=== PATIENT | male | born 1995 | race Caucasian/White ===

== ENCOUNTER 2024-04-28 22:36 | Inpatient (IN) | payer MEDICAID, OTHER, SELFPAY ==
[2024-04-28 22:48] VITALS: BP 127/87; BP 142/98; PULSE 90; PULSE 95; RESP 18; TEMP 37.3; O2SAT 95; O2SAT 96; BMI 31.6
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
[2024-04-29 00:07] LABS: MANUAL DIFF FLAG NO
[2024-04-29 00:12] LABS: Basophils Absolute Auto 0.1 X10*3/uL (0.0-0.2); Basophils Percent Auto 0.7 % (0-2); Eosinophils Absolute Auto 0.1 X10*3/uL (0.0-0.4); Eosinophils Percent Auto 1.2 % (0-4); Hematocrit 42.4 % (42.0-52.0); Hemoglobin 14.5 g/dl (14.0-18.0); Imm Gran Abs Auto 0.01 X10*3/uL (0.00-0.03); Imm Gran Pct Auto 0.1 % (0.0-0.4); Lymphocytes Absolute Auto 2.2 X10*3/uL (1.2-4.9); Lymphocytes Percent Auto 26.3 % (20-40); Mean Corpuscular HGB Conc 34.2 g/dl (31.0-36.0); Mean Corpuscular Hemoglobin 30.3 pg (27.0-33.0); Mean Corpuscular Volume 88.5 fL (80.0-98.0); Mean Platelet Volume 9.3 fL (9.4-12.4); Monocytes Absolute Auto 0.5 X10*3/uL (0.1-1.2); Monocytes Percent Auto 5.6 % (2-11); Neutrophils Absolute Auto 5.4 x10*3/uL (2.0-8.3); Neutrophils Percent Auto 66.1 % (45-73); Platelet Count 295 X10*3/uL (160-400); Red Blood Count 4.79 X10*6/uL (4.60-5.80); Red Cell Distribution Width 13.3 % (11.0-16.0); White Blood Count 8.2 X10*3/uL (4.8-10.8)
[2024-04-29 00:21] LABS: Amphetamine Screen Urine Not Detected (Not Detect); Barbiturates, Urine Not Detected (Not Detect); Benzodiazepines Screen Urine Not Detected (Not Detect); Buprenorphine Scr Not Detected (Not Detect); Cannabinoid Screen Urine Not Detected (Not Detect); Cocaine Screen Urine Not Detected (Not Detect); Fentanyl, urine Not Detected (Not Detect); Methadone Screen, Urine Not Detected (Not Detect); Opiate Screen Urine Not Detected (Not Detect); Oxycodone Screen Urine Not Detected (Not Detect); Phencyclidine Screen Urine Not Detected (Not Detect)
[2024-04-29 00:27] LABS: Alanine Aminotransferase 57 U/L (0-40); Albumin Level 4.8 g/dL (3.5-5.0); Alkaline Phosphatase 100 U/L (39-117); Anion Gap 16 (12-20); Aspartate Amino Transferase 26 U/L (5-37); Bilirubin Direct 0.1 mg/dL (0.0-0.5); Bilirubin Total 0.3 mg/dL (0.0-1.0); Blood Urea Nitrogen 15 mg/dL (9-16); Calcium 10.3 mg/dL (8.4-10.2); Carbon Dioxide 22 mmol/L (22-29); Chloride 107 mmol/L (96-108); Creatinine Clr Calc Pharmacy 145.3; Estimated Glomerular Filt Rate > 60; Ethanol < 10 mg/dL; Glucose Random 102 mg/dL (60-115); Sodium 141 mmol/L (135-145); Total Protein 7.8 g/dL (6.5-8.0)
[2024-04-29] MEDS: hydrOXYzine HCL 50 MG TABLET PO ×3 (02:13→21:20)
[2024-04-29] MEDS: diphenhydrAMINE HCL 25 MG CAPSULE PO ×2 (02:13→21:20)
[2024-04-29 06:03] VITALS: BP 109/75; PULSE 69; RESP 15; TEMP 36.8; O2SAT 98
--- NOTE | 2024-04-29 07:59 | ECG_ITS ---
Test Reason : CHECK FOR PROLONGED QT Blood Pressure : / mmHG Vent. Rate : 082 BPM Atrial Rate : 082 BPM P-R Int : 164 ms QRS Dur : 100 ms QT Int : 366 ms P-R-T Axes : 054 077 044 degrees QTc Int : 427 ms Normal sinus rhythm Normal ECG No previous ECGs available Referred By: Generic ED Physician Electronically Signed By:LILIAM URBINA
[2024-04-29 08:36] LABS: Appearance Urine Clear; Color Urine Dark Yellow; Glucose Urine UA Negative (Negative); Leukocyte Esterase Urine Negative (Negative); Nitrite Urine Negative (Negative); Specific Gravity - Urine >= 1.030 (1.005-1.025); Urine Blood Negative (Negative); Urine Ketones Negative (Negative); Urine Protein Negative (Neg-Trace)
[2024-04-29] MEDS: Sertraline HCL 100 MG TABLET PO (09:16)
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
--- NOTE | 2024-04-29 11:33 | PC.ADMIT ---
Bladimir is a 28-year-old male admitted from [facility] to [facility] on a CV for treatment of unspecified anxiety disorder. Tox screen negative. Pt denies substance use. Pt reported rarely using alcohol but drank 4-5 shots yesterday due to increased anxiety. Pt presented to the ED via ambulance secondary to feeling overwhelmed by family conflicts at home.Pt reports feeling triggered at home with his mother's and sister's alcohol use. Pt endorsed suicidal ideation and stated I just want it to end, I want to be free from all this stress. Pt did not disclose a plan. Pt currently reports feeling safe on the unit. Upon arrival to [facility] pt was pleasant and cooperative. Mood is depressed, affect is flat. Pt reports difficulty falling and staying asleep. Pt denied medical issues. Pt placed on 15 minute safety checks.
[2024-04-29 16:41] VITALS: BP 121/78; PULSE 82; RESP 16; TEMP 36.4; O2SAT 97
[2024-04-29 16:46] VITALS: BMI 39.9
[2024-04-29 22:06] VITALS: BP 121/77; PULSE 80; RESP 18; TEMP 36.6; O2SAT 96
[2024-04-30 07:00] VITALS: BMI 39.9
[2024-04-30 07:30] VITALS: BP 120/79; PULSE 82; RESP 14; TEMP 36.4; O2SAT 96
[2024-04-30] MEDS: Sertraline HCL 100 MG TABLET PO (08:33)
[2024-04-30] MEDS: hydrOXYzine HCL 50 MG TABLET PO ×2 (08:33→22:05)
[2024-04-30] MEDS: Acetaminophen 325 MG TABLET 650 MG PO (08:36)
--- NOTE | 2024-04-30 09:02 | P.PNPSI_ITS ---
Subjective Subjective Date of Service: 04/30/24 Reason For Visit: Crisis Subjective Notes: Conditional Voluntary Interim History: Reviewed with Dr. Martinez. Active on unit, social with peers. Pt reports feeling better since being on the unit. Discussed possibly attending PHP after discharge. He reports sleeping well. denies SI/HI/VH/AH. Medication Compliance: Yes Side effects from medications: No Attending Groups: Yes Review of Systems Constitutional: Reports as per HPI Eyes: Reports as per HPI Reports as per HPI Cardiovascular: Reports as per HPI Respiratory: Reports as per HPI Gastrointestinal: Reports as per HPI Genitourinary: Reports as per HPI Musculoskeletal: Reports as per HPI Skin/Breast: Reports as per HPI Reports as per HPI Psychiatric: Reports as per HPI Endocrine: Reports as per HPI Hematologic/Lymphatic: Reports as per HPI Allergic/Immunologic: Reports as per HPI Mental Status Exam Mental Status Exam Narrative: Pt is alert and oriented; behavior is cooperative and calm; dressed in casual attire; mood is described as okay ; eye contact appropriate; Speech is normal rate, volume and not pressured; thought process is organized; Thought content is on tx; otherwise pertinent to relevant topics and without any delusional content, paranoid ideations or grandiosity; denies SI/HI/VH/AH. Diagnostics Vital Signs (24Hr): Vital Signs - 24 hr 04/29/24 16:41 04/29/24 22:06 04/30/24 07:30 Temperature 97.5 F 97.8 F 97.5 F Pulse Rate 82 80 82 Respiratory Rate 16 18 14 Blood Pressure 121/78 121/77 120/79 Pulse Oximetry 97 96 96 Oxygen Delivery Method Room Air Room Air Room Air BMI result Body Mass Index 39.9 Labs 04/29/24 00:01 04/30/24 08:56 Labs: Laboratory Results - last 48 hr 04/28/24 04/29/24 04/29/24 23:57 00:01 08:20 WBC 8.2 RBC 4.79 Hgb 14.5 Hct 42.4 MCV 88.5 MCH 30.3 MCHC 34.2 RDW 13.3 Plt Count 295 MPV 9.3 L Immature Gran % (Auto) 0.1 Neut % (Auto) 66.1 Lymph % (Auto) 26.3 [place] % (Auto) 5.6 Eos % (Auto) 1.2 Baso % (Auto) 0.7 Lymph # (Auto) 2.2 [place] # (Auto) 0.5 Eos # (Auto) 0.1 Baso # (Auto) 0.1 Abs Immat Gran (auto) 0.01 Absolute Neuts (auto) 5.4 Absolute Nucleated RBC 0.000 Nucleated RBC % (auto) 0.0 Sodium 141 Potassium 4.0 Chloride 107 Carbon Dioxide 22 Anion Gap 16 BUN 15 Creatinine 0.88 Estim Creat Clear Calc 145.3 Estimated GFR > 60 Random Glucose 102 Calcium 10.3 H Total Bilirubin 0.3 Direct Bilirubin 0.1 AST 26 ALT 57 H Alkaline Phosphatase 100 Total Protein 7.8 Albumin 4.8 Urine Color Dark Yellow Urine Appearance Clear Urine pH 6.0 Ur Specific [place] >= 1.030 H Urine Protein Negative Urine Glucose (UA) Negative Urine Ketones Negative Urine Blood Negative Urine Nitrite Negative Ur Leukocyte Esterase Negative Urine Opiates Screen Not Detected Ur Buprenorphine Scrn Not Detected Ur Oxycodone Screen Not Detected Urine Methadone Screen Not Detected Urine Fentanyl Screen Not Detected Ur Barbiturates Screen Not Detected Ur Phencyclidine Scrn Not Detected Ur Amphetamines Screen Not Detected U Benzodiazepines Scrn Not Detected Urine Cocaine Screen Not Detected U Marijuana (THC) Screen Not Detected Ethyl Alcohol < 10 Medications Medications Current Medications Acetaminophen (Acetaminophen 325 Mg Tablet) 650 mg PO Q6H PRN PRN Reason: Headache/Pain Mild Scale (1-3) Last Admin: 04/30/24 08:36 Dose: 650 mg Al Hydroxide/Mg Hydroxide (Magnesium Hydrox/Alum Hydrox 30 Ml Oral.Susp) 30 ml PO Q6H PRN PRN Reason: Heartburn/Nausea Diphenhydramine HCl (Diphenhydramine Hcl 25 Mg Capsule) 25 mg PO BEDTIME [facility] Last Admin: 04/29/24 21:20 Dose: 25 mg Hydroxyzine HCl (Hydroxyzine Hcl 50 Mg Tablet) 50 mg PO BID [facility] Last Admin: 04/30/24 08:33 Dose: 50 mg Hydroxyzine HCl (Hydroxyzine Hcl 25 Mg Tablet) 25 mg PO Q6H PRN PRN Reason: Anxiety Magnesium Hydroxide (Milk Of Magnesia 30 Ml Oral.Susp) 30 ml PO DAILY PRN PRN Reason: Constipation Nicotine Polacrilex (Nicotine Polacrilex 2 Mg Gum) 4 mg BUCCAL Q2H PRN PRN Reason: Nicotine Cravings Sertraline HCl (Sertraline Hcl 100 Mg Tablet) 100 mg PO DAILY [facility] Last Admin: 04/30/24 08:33 Dose: 100 mg Trazodone HCl (Trazodone Hcl 50 Mg Tablet) 50 mg PO BEDTIME MRX1 PRN PRN Reason: Insomnia Allergies Allergies Allergy/AdvReac Type Severity Reaction Status Date / Time No Known Allergies Allergy Unverified 04/28/24 22:53 [No Known Allergies*] Assessment & Plan Assessment & Plan (1) MDD (major depressive disorder), recurrent episode: Status: Acute Code(s): F33.9 - Major depressive disorder, recurrent, unspecified (2) PTSD (post-traumatic stress disorder): Status: Acute Code(s): F43.10 - Post-traumatic stress disorder, unspecified (3) Autism spectrum: Status: Acute Code(s): F84.0 - Autistic disorder Plan Patient is a 28-year-old male with history of MDD, PTSD and autism spectrum disorder who presented to ER via ambulance due to suicidal ideation secondary to feeling overwhelmed by family conflicts at home. Plan: CV 15 minute safety checks Continue home medications Obtain collateral Encourage groups Consider PHP Discharge planning 04/30: Active on unit, social with peers. Pt reports feeling better since being on the unit. Discussed possibly attending PHP after discharge. He reports sleeping well. denies SI/HI/VH/AH. Continue current tx plan. Patient educated on: diagnosis, medication risk/benefits and therapeutic strategies Reason for continued inpatient stay Substantial Risk for: med/psych decompensation Time Spent With Patient Time: Total time managing care of this patient today _20___ minutes.
[2024-04-30 09:33] LABS: Alanine Aminotransferase 46 U/L (0-40); Albumin Level 4.6 g/dL (3.5-5.0); Alkaline Phosphatase 96 U/L (39-117); Anion Gap 11 (12-20); Aspartate Amino Transferase 20 U/L (5-37); Bilirubin Total 0.5 mg/dL (0.0-1.0); Blood Urea Nitrogen 19 mg/dL (9-16); Calcium 9.7 mg/dL (8.4-10.2); Carbon Dioxide 26 mmol/L (22-29); Chloride 106 mmol/L (96-108); Cholesterol 172 mg/dL (<200); Creatinine Clr Calc Pharmacy 173.5; Estimated Glomerular Filt Rate > 60; Glucose Fasting 97 mg/dL (60-99); HDL Cholesterol 37 mg/dL (>40); LDL Cholesterol Calculated 103 mg/dL (<100); Sodium 139 mmol/L (135-145); Total Protein 7.5 g/dL (6.5-8.0); Triglycerides 160 mg/dL (<150)
[2024-04-30 20:05] VITALS: BP 116/74; PULSE 79; RESP 12; TEMP 36.7; O2SAT 97
[2024-04-30] MEDS: diphenhydrAMINE HCL 25 MG CAPSULE PO (22:04)
[2024-05-01 08:00] VITALS: BP 114/74; PULSE 79; RESP 16; TEMP 36.2; O2SAT 97
[2024-05-01] MEDS: hydrOXYzine HCL 50 MG TABLET PO ×2 (08:24→21:13)
[2024-05-01] MEDS: Sertraline HCL 100 MG TABLET PO (08:25)
--- NOTE | 2024-05-01 08:42 | HO.PSYCHPN ---
Subjective Subjective Date of Service: 05/01/24 Reason For Visit: Crisis Subjective Notes: Conditional Voluntary Interim History: Reviewed with Dr. Martinez. Active on unit, social with peers. Pt reports feeling okay ; pt reports he would like to attend [facility] after discharge and feels it would be helpful. denies SI/HI/VH/AH. Plan to discharge Saturday if he continues to improve. Medication Compliance: Yes Side effects from medications: No Attending Groups: Yes Review of Systems Constitutional: Reports as per HPI Eyes: Reports as per HPI Reports as per HPI Cardiovascular: Reports as per HPI Respiratory: Reports as per HPI Gastrointestinal: Reports as per HPI Genitourinary: Reports as per HPI Musculoskeletal: Reports as per HPI Skin/Breast: Reports as per HPI Reports as per HPI Psychiatric: Reports as per HPI Endocrine: Reports as per HPI Hematologic/Lymphatic: Reports as per HPI Allergic/Immunologic: Reports as per HPI Mental Status Exam Mental Status Exam Narrative: Pt is alert and oriented; behavior is cooperative and calm; dressed in casual attire; mood is described as okay ; eye contact appropriate; Speech is normal rate, volume and not pressured; thought process is organized; Thought content is on tx; otherwise pertinent to relevant topics and without any delusional content, paranoid ideations or grandiosity; denies SI/HI/VH/AH. Diagnostics Vital Signs (24Hr): Vital Signs - 24 hr 04/30/24 20:05 05/01/24 08:00 Temperature 98.0 F 97.2 F Pulse Rate 79 79 Respiratory Rate 12 16 Blood Pressure 116/74 114/74 Pulse Oximetry 97 97 Oxygen Delivery Method Room Air Room Air BMI result Body Mass Index 39.9 Labs 04/29/24 00:01 04/30/24 08:56 Labs: Laboratory Results - last 48 hr 04/30/24 08:56 Sodium 139 Potassium 4.0 Chloride 106 Carbon Dioxide 26 Anion Gap 11 L BUN 19 H Creatinine 0.83 Estim Creat Clear Calc 173.5 Estimated GFR > 60 Fasting Glucose 97 Calcium 9.7 Total Bilirubin 0.5 AST 20 ALT 46 H Alkaline Phosphatase 96 Total Protein 7.5 Albumin 4.6 Triglycerides 160 H Cholesterol 172 LDL Cholesterol, Calc 103 H HDL Cholesterol 37 L Medications Medications Current Medications Acetaminophen (Acetaminophen 325 Mg Tablet) 650 mg PO Q6H PRN PRN Reason: Headache/Pain Mild Scale (1-3) Last Admin: 04/30/24 08:36 Dose: 650 mg Al Hydroxide/Mg Hydroxide (Magnesium Hydrox/Alum Hydrox 30 Ml Oral.Susp) 30 ml PO Q6H PRN PRN Reason: Heartburn/Nausea Diphenhydramine HCl (Diphenhydramine Hcl 25 Mg Capsule) 25 mg PO BEDTIME [facility] Last Admin: 04/30/24 22:04 Dose: 25 mg Hydroxyzine HCl (Hydroxyzine Hcl 50 Mg Tablet) 50 mg PO BID [facility] Last Admin: 05/01/24 08:24 Dose: 50 mg Hydroxyzine HCl (Hydroxyzine Hcl 25 Mg Tablet) 25 mg PO Q6H PRN PRN Reason: Anxiety Magnesium Hydroxide (Milk Of Magnesia 30 Ml Oral.Susp) 30 ml PO DAILY PRN PRN Reason: Constipation Nicotine Polacrilex (Nicotine Polacrilex 2 Mg Gum) 4 mg BUCCAL Q2H PRN PRN Reason: Nicotine Cravings Sertraline HCl (Sertraline Hcl 100 Mg Tablet) 100 mg PO DAILY [facility] Last Admin: 05/01/24 08:25 Dose: 100 mg Trazodone HCl (Trazodone Hcl 50 Mg Tablet) 50 mg PO BEDTIME MRX1 PRN PRN Reason: Insomnia Allergies Allergies Allergy/AdvReac Type Severity Reaction Status Date / Time No Known Allergies Allergy Unverified 04/28/24 22:53 [No Known Allergies*] Assessment & Plan Assessment & Plan (1) MDD (major depressive disorder), recurrent episode: Status: Acute Code(s): F33.9 - Major depressive disorder, recurrent, unspecified (2) PTSD (post-traumatic stress disorder): Status: Acute Code(s): F43.10 - Post-traumatic stress disorder, unspecified (3) Autism spectrum: Status: Acute Code(s): F84.0 - Autistic disorder Plan Patient is a 28-year-old male with history of MDD, PTSD and autism spectrum disorder who presented to ER via ambulance due to suicidal ideation secondary to feeling overwhelmed by family conflicts at home. Plan: CV 15 minute safety checks Continue home medications Obtain collateral Encourage groups Consider PHP Discharge planning 04/30: Active on unit, social with peers. Pt reports feeling better since being on the unit. Discussed possibly attending PHP after discharge. He reports sleeping well. denies SI/HI/VH/AH. Continue current tx plan. 10/4: Active on unit, social with peers. Pt reports feeling okay ; pt reports he would like to attend PHP after discharge and feels it would be helpful. denies SI/HI/VH/AH. Plan to discharge Saturday if he continues to improve. Continue current tx plan. Patient educated on: diagnosis, medication risk/benefits and therapeutic strategies Reason for continued inpatient stay Substantial Risk for: med/psych decompensation Time Spent With Patient Time: Total time managing care of this patient today _20___ minutes.
[2024-05-01] MEDS: Acetaminophen 325 MG TABLET 650 MG PO (10:02)
[2024-05-01] MEDS: Flu Vacc TS2024-25(6mos up)/PF 0.5 ML SYRINGE IM (13:29)
[2024-05-01 20:00] VITALS: BP 122/70; PULSE 89; RESP 18; TEMP 36.2; O2SAT 96
[2024-05-01] MEDS: diphenhydrAMINE HCL 25 MG CAPSULE PO (21:12)
[2024-05-02 08:00] VITALS: BP 128/76; PULSE 81; RESP 16; TEMP 36.4; O2SAT 96
--- NOTE | 2024-05-02 08:28 | HO.PSYCHPN ---
Subjective Subjective Date of Service: 05/02/24 Reason For Visit: Crisis Subjective Notes: Conditional Voluntary Healthcare Proxy: No Guardianship: No Medical Problems Affecting Mental Status: No Interim History: 28 yo reports he is feeling better, anxious about being able to manage when discharged- keeping irrational thoughts at bay- worried about his affect on others in his life-like his mom- with whom he lives- Medication Compliance: Yes Side effects from medications: No Attending Groups: Yes (looking forward to step down to [facility] as interim step) Review of Systems Acute medical concerns: No Medical Review of Systems: unchanged Mental Status Exam Mental Status Exam Patient Appearance: Unkempt Patient Orientation: Person, Place, Time and Situation Level of Consciousness: Awake Patient Behavior: Appropriate and Cooperative Mood Description: Apprehensive Affect Description: Appropriate Patient Cognition Impaired: No Ability to Follow Directions: Fair Speech Pattern: Clear Hallucinations: None Thought Process: Intact Thought Content: positive for Obsessional Thoughts and positive for Goal Oriented Depressive Symptoms: Increased Anxiety and Diff. Making Decisions Judgement: Fair Diagnostics Vital Signs (24Hr): Vital Signs - 24 hr 05/01/24 20:00 05/02/24 08:00 Temperature 97.1 F 97.6 F Pulse Rate 89 81 Respiratory Rate 18 16 Blood Pressure 122/70 128/76 Pulse Oximetry 96 96 Oxygen Delivery Method Room Air Room Air BMI result Body Mass Index 39.9 Labs 04/29/24 00:01 04/30/24 08:56 Labs: Laboratory Results - last 48 hr 04/30/24 08:56 Sodium 139 Potassium 4.0 Chloride 106 Carbon Dioxide 26 Anion Gap 11 L BUN 19 H Creatinine 0.83 Estim Creat Clear Calc 173.5 Estimated GFR > 60 Fasting Glucose 97 Calcium 9.7 Total Bilirubin 0.5 AST 20 ALT 46 H Alkaline Phosphatase 96 Total Protein 7.5 Albumin 4.6 Triglycerides 160 H Cholesterol 172 LDL Cholesterol, Calc 103 H HDL Cholesterol 37 L Medications Medications Current Medications Acetaminophen (Acetaminophen 325 Mg Tablet) 650 mg PO Q6H PRN PRN Reason: Headache/Pain Mild Scale (1-3) Last Admin: 05/01/24 10:02 Dose: 650 mg Al Hydroxide/Mg Hydroxide (Magnesium Hydrox/Alum Hydrox 30 Ml Oral.Susp) 30 ml PO Q6H PRN PRN Reason: Heartburn/Nausea Diphenhydramine HCl (Diphenhydramine Hcl 25 Mg Capsule) 25 mg PO BEDTIME TRACIE Last Admin: 05/01/24 21:12 Dose: 25 mg Hydroxyzine HCl (Hydroxyzine Hcl 50 Mg Tablet) 50 mg PO BID COUNT INCLUDES THE [facility] Last Admin: 05/01/24 21:13 Dose: 50 mg Hydroxyzine HCl (Hydroxyzine Hcl 25 Mg Tablet) 25 mg PO Q6H PRN PRN Reason: Anxiety Magnesium Hydroxide (Milk Of Magnesia 30 Ml Oral.Susp) 30 ml PO DAILY PRN PRN Reason: Constipation Nicotine Polacrilex (Nicotine Polacrilex 2 Mg Gum) 4 mg BUCCAL Q2H PRN PRN Reason: Nicotine Cravings Sertraline HCl (Sertraline Hcl 100 Mg Tablet) 100 mg PO DAILY COUNT INCLUDES THE [facility] Last Admin: 05/01/24 08:25 Dose: 100 mg Trazodone HCl (Trazodone Hcl 50 Mg Tablet) 50 mg PO BEDTIME MRX1 PRN PRN Reason: Insomnia Allergies Allergies Allergy/AdvReac Type Severity Reaction Status Date / Time No Known Allergies Allergy Unverified 04/28/24 22:53 [No Known Allergies*] Assessment & Plan Assessment & Plan (1) MDD (major depressive disorder), recurrent episode: Status: Acute Code(s): F33.9 - Major depressive disorder, recurrent, unspecified (2) PTSD (post-traumatic stress disorder): Status: Acute Code(s): F43.10 - Post-traumatic stress disorder, unspecified (3) Autism spectrum: Status: Acute Code(s): F84.0 - Autistic disorder Plan Patient is a 28-year-old male with history of MDD, PTSD and autism spectrum disorder who presented to ER via ambulance due to suicidal ideation secondary to feeling overwhelmed by family conflicts at home. Plan: CV 15 minute safety checks Continue home medications Obtain collateral Encourage groups Consider PHP Discharge planning 04/30: Active on unit, social with peers. Pt reports feeling better since being on the unit. Discussed possibly attending PHP after discharge. He reports sleeping well. denies SI/HI/VH/AH. Continue current tx plan. 05/01: Active on unit, social with peers. Pt reports feeling okay ; pt reports he would like to attend PHP after discharge and feels it would be helpful. denies SI/HI/VH/AH. Plan to discharge Saturday if he continues to improve. Continue current tx plan. 05/02 CTP Patient educated on: therapeutic strategies and other (dc php and then further outpt care) Informed Consent: understands Reason for continued inpatient stay Substantial Risk for: rapid decompensation Time Spent With Patient Time: Total time managing care of this patient today ____ minutes.
[2024-05-02] MEDS: Sertraline HCL 100 MG TABLET PO (08:40)
[2024-05-02] MEDS: hydrOXYzine HCL 50 MG TABLET PO ×2 (08:41→20:36)
[2024-05-02 20:00] VITALS: BP 139/85; PULSE 92; RESP 18; TEMP 36.9; O2SAT 97
[2024-05-02] MEDS: diphenhydrAMINE HCL 25 MG CAPSULE PO (20:36)
[2024-05-03 07:43] VITALS: BP 120/75; PULSE 75; RESP 18; TEMP 36.2; O2SAT 97
[2024-05-03] MEDS: Sertraline HCL 100 MG TABLET PO (09:08)
[2024-05-03] MEDS: hydrOXYzine HCL 50 MG TABLET PO ×2 (09:08→21:27)
--- NOTE | 2024-05-03 11:13 | HO.PSYCHPN ---
Subjective Subjective Date of Service: 05/03/24 Reason For Visit: Crisis Subjective Notes: Conditional Voluntary Healthcare Proxy: No Guardianship: No Medical Problems Affecting Mental Status: No Interim History: 28 yo reports he has been doing better with managing intrusive thoughts- and less worried about it's affects on others- nursing reported concerns about his home life living with mom who might have alcohol use disorder. I gave patient information for [facility]- and told him about adult groups- for people on the spectrum. Reports sleeping ok - , no s/e of medications, He reports feeling groggy , tired, but less anxiety , Nursing reports pt appears brighter, engaging more with peers- playing Chess Medication Compliance: Yes Side effects from medications: No Attending Groups: Yes Review of Systems Acute medical concerns: No Medical Review of Systems: unchanged Mental Status Exam Mental Status Exam Patient Appearance: Unkempt Patient Orientation: Person, Place, Time and Situation Level of Consciousness: Awake and Alert Patient Behavior: Appropriate and Cooperative Mood Description: Anxious Affect Description: Blunted and Apprehensive Patient Cognition Impaired: No Ability to Follow Directions: Good Speech Pattern: Clear Hallucinations: None Delusions: Not Present Thought Process: Intact and Goal Oriented Judgement: Fair Diagnostics Vital Signs (24Hr): Vital Signs - 24 hr 05/02/24 20:00 05/03/24 07:43 Temperature 98.4 F 97.1 F Pulse Rate 92 75 Respiratory Rate 18 18 Blood Pressure 139/85 120/75 Pulse Oximetry 97 97 Oxygen Delivery Method Room Air Room Air BMI result Body Mass Index 39.9 Labs 04/29/24 00:01 04/30/24 08:56 Medications Medications Current Medications Acetaminophen (Acetaminophen 325 Mg Tablet) 650 mg PO Q6H PRN PRN Reason: Headache/Pain Mild Scale (1-3) Last Admin: 05/01/24 10:02 Dose: 650 mg Al Hydroxide/Mg Hydroxide (Magnesium Hydrox/Alum Hydrox 30 Ml Oral.Susp) 30 ml PO Q6H PRN PRN Reason: Heartburn/Nausea Diphenhydramine HCl (Diphenhydramine Hcl 25 Mg Capsule) 25 mg PO BEDTIME [facility] Last Admin: 05/02/24 20:36 Dose: 25 mg Hydroxyzine HCl (Hydroxyzine Hcl 50 Mg Tablet) 50 mg PO BID [facility] Last Admin: 05/03/24 09:08 Dose: 50 mg Hydroxyzine HCl (Hydroxyzine Hcl 25 Mg Tablet) 25 mg PO Q6H PRN PRN Reason: Anxiety Magnesium Hydroxide (Milk Of Magnesia 30 Ml Oral.Susp) 30 ml PO DAILY PRN PRN Reason: Constipation Nicotine Polacrilex (Nicotine Polacrilex 2 Mg Gum) 4 mg BUCCAL Q2H PRN PRN Reason: Nicotine Cravings Sertraline HCl (Sertraline Hcl 100 Mg Tablet) 100 mg PO DAILY [facility] Last Admin: 05/03/24 09:08 Dose: 100 mg Trazodone HCl (Trazodone Hcl 50 Mg Tablet) 50 mg PO BEDTIME MRX1 PRN PRN Reason: Insomnia Allergies Allergies Allergy/AdvReac Type Severity Reaction Status Date / Time No Known Allergies Allergy Unverified 04/28/24 22:53 [No Known Allergies*] Assessment & Plan Assessment & Plan (1) MDD (major depressive disorder), recurrent episode: Status: Acute Code(s): F33.9 - Major depressive disorder, recurrent, unspecified (2) PTSD (post-traumatic stress disorder): Status: Acute Code(s): F43.10 - Post-traumatic stress disorder, unspecified (3) Autism spectrum: Status: Acute Code(s): F84.0 - Autistic disorder Plan Patient is a 28-year-old male with history of MDD, PTSD and autism spectrum disorder who presented to ER via ambulance due to suicidal ideation secondary to feeling overwhelmed by family conflicts at home. Plan: CV 15 minute safety checks Continue home medications Obtain collateral Encourage groups Consider PHP Discharge planning 04/30: Active on unit, social with peers. Pt reports feeling better since being on the unit. Discussed possibly attending PHP after discharge. He reports sleeping well. denies SI/HI/VH/AH. Continue current tx plan. 05/01: Active on unit, social with peers. Pt reports feeling okay ; pt reports he would like to attend PHP after discharge and feels it would be helpful. denies SI/HI/VH/AH. Plan to discharge Saturday if he continues to improve. Continue current tx plan. 05/02 CTP 05/03 CTP gave him some autism resource info Patient educated on: diagnosis Guardian/Caregiver educated on: diagnosis and medication risk/benefits Informed Consent: understands Reason for continued inpatient stay Substantial Risk for: rapid decompensation Time Spent With Patient Time: Total time managing care of this patient today ____ minutes.
[2024-05-03] MEDS: Acetaminophen 325 MG TABLET 650 MG PO (18:13)
[2024-05-03 20:00] VITALS: BP 129/76; PULSE 88; RESP 14; TEMP 36.9; O2SAT 96
[2024-05-03] MEDS: diphenhydrAMINE HCL 25 MG CAPSULE PO (21:27)
[2024-05-04 07:30] VITALS: BP 119/80; PULSE 85; RESP 14; TEMP 36; O2SAT 96
[2024-05-04] MEDS: Sertraline HCL 100 MG TABLET PO (08:46)
[2024-05-04] MEDS: hydrOXYzine HCL 50 MG TABLET PO (08:46)
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
== END 2024-05-04 12:23 | disposition home or self-care (01) | DRG 751 ==
LOC: HO.ED 23:56 → HO.PADLT16 04-29 09:43
PROVIDERS: Admitting Provider Registered Nurse; Emergency Provider Emergency Medicine; Responsible Provider Registered Nurse; Visit Provider Psychiatry & Neurology Psychiatry
DX: F33.9 Major depressive disorder, recurrent, unspecified (principal); R45.851 Suicidal ideations; F43.10 Post-traumatic stress disorder, unspecified; F84.0 Autistic disorder; Z63.4 Disappearance and death of family member; Z23 Encounter for immunization; Z79.899 Other long term (current) drug therapy
CPT/HCPCS: 36415; 80048; 80053; 80061; 80076; 80307; 81003; 85025; 90656; 93005; 99285; S9485

== ENCOUNTER → 2024-04-29 09:16 | Outpatient (BNV) | payer OTHER, SELFPAY | PROVIDERS: Admitting Provider Registered Nurse; Emergency Provider Emergency Medicine; Responsible Provider Registered Nurse; Visit Provider Registered Nurse | DX: F33.2 Major depressive disorder, recurrent severe without psychotic features (principal); F43.11 Post-traumatic stress disorder, acute; F84.0 Autistic disorder | CPT/HCPCS: 90792; 99231 ==